=== PATIENT | male | born 1955 | race Caucasian/White ===

== ENCOUNTER 2019-05-23 00:20 | Emergency (ER) | payer OTHER, SELFPAY ==
[2019-05-23 00:25] VITALS: BP 151/101; PULSE 60; RESP 20; TEMP 36.5; O2SAT 99
--- NOTE | 2019-05-23 00:27 | ED_ITS ---
HPI - Abdominal Pain General Chief Complaint: Abdominal Pain Stated Complaint: lft abd pain Time Seen by Provider: 05/23/19 00:25 Source: patient Mode of arrival: Ambulatory Limitations: no limitations History of Present Illness HPI narrative: This is a 63-year-old male who comes emergency department with complaint of left lower quadrant pain. Patient states came on suddenly this evening. He states he went to sleep he felt fine at 9:00 p.m. and then woke up with quite a bit of left lower abdominal pain. It has been increasing over time. He states not radiating elsewhere. He has has no flank pain, no testi cular pain. He has been slightly nauseated. Had 1 episode of dry heaving. He denies any back pain. He states the location has not changed. Patient states he has had a normal bowel movement today. No black or bloody stools. He has not had any frequency, dysuria urgency or hematuria. He has a remote history of prostate cancer and had a urinary sphincter placed. He denies any other current medical issues. He did take an Ambien this evening for sleep. No tobacco, occasional alcohol, rare THC. He denies any other medical issues or taking any other medications regularly. Related Data Previous Rx's Medication Instructions Recorded sildenafil (pulm.hypertension) 20 mg PO QDAYP PRN #50 tab 08/21/16 [Revatio] zolpidem 5 mg tablet 5 mg PO HS #10 tab 11/07/18 tamsulosin [Flomax] 0.4 mg PO DAILY #7 cap 05/23/19 Allergies Allergy/AdvReac Type Severity Reaction Status Date / Time From DITROPAN XL AdvReac Mild DECREASED Uncoded 11/07/18 09:23 URINATION, MENTAL CONFUSION Review of Systems Review of Systems ROS Unobtainable: All systems reviewed & are unremarkable except as noted in HPI and below Patient History Surgical History Status post hernia repair Family History (Updated 08/21/16 @ 00:00 by Conversion Provider) Father Age: 96 Dementia Social History Smoking Status: Never smoker Smoking Status: Never smoker Substance Use Type: marijuana Exam Narrative Exam Narrative: GENERAL: Alert and oriented x three, well-nourished, well-appear ing male in moderate distress. Patient prefers to stand or keeping moving about room. HEENT: Head normocephalic, atraumatic, EOMI, pupils reactive, face symmetric, moist mucous membranes NECK: Supple, full range of motion CARDIOVASCULAR: Regular rate and rhythm without murmurs, rubs or gallops. RESPIRATORY: Breath sounds equal bilaterally, no wheezes rales or rhonchi. ABDOMEN: Soft, positive for left lower quadrant tenderness. Normoactive bowel sounds all 4 quadrants. No guarding or rebound, rigidity, no mass, no hernia noted. No pulsatile mass or bruit noted. : No CVA tenderness EXTREMITIES: Normal range of motion, no clubbing or edema. Neurovascularly intact NEUROLOGICAL: Cranial nerves II through XII grossly intact. Moving all extremities SKIN: Warm, dry, no petechiae, no rashes or lesions. Initial Vital Signs Initial Vital Signs: Vital Signs Temperature 97.7 F 05/23/19 00:25 Pulse Rate 60 05/23/19 00:25 Respiratory Rate 20 05/23/19 00:25 Blood Pressure 151/101 H 05/23/19 00:25 Pulse Oximetry 99 05/23/19 00:25 Course Orders Ordered: ED Orders 05/23/19 00:30 Urinalysis and Microscopic Stat 05/23/19 00:33 CT kidney ureter bladder (KUB) Stat 05/23/19 00:40 Complete Blood Count AUTO DIFF Stat Comprehensive Metabolic Panel Stat Lipase Stat Discontinued Medications Hydrocodone Bitart/Acetaminophen (Vicodin 5/325 Prepack) 1 bottle MISC SEEINSTR ONE Stop: 05/23/19 01:22 Last Admin: 05/23/19 01:26 Dose: 1 bottle Documented by: MMCFARL Ketorolac Tromethamine (Toradol) 30 mg IV NOW ONE Stop: 05/23/19 00:33 Last Admin: 05/23/19 00:41 Dose: 30 mg Documented by: MMCFARL Ondansetron HCl (Zofran) 4 mg IV NOW ONE Stop: 05/23/19 00:33 Last Admin: 05/23/19 00:41 Dose: 4 mg Documented by: MMCFARL Ondansetron HCl (Zofran Odt Prepack) 1 bottle MISC SEEINSTR ONE Stop: 05/23/19 01:22 Last Admin: 05/23/19 01:26 Dose: 1 bottle Documented by: MMCFARL Tamsulosin HCl (Flomax) 0.4 mg PO NOW ONE Stop: 05/23/19 01:22 Last Admin: 05/23/19 01:26 Dose: 0.4 mg Documented by: MMCDAWOOD Vital Signs Vital signs: Vital Signs - 8 hr 05/23/19 00:25 05/23/19 01:30 Temperature 97.7 F Pulse Rate 60 87 Respiratory Rate 20 16 Blood Pressure 151/101 H 141/89 H Pulse Oximetry 99 99 MDM - Abdominal Pain Lab Data Attestation: I reviewed the patient's lab results. Result diagrams: 05/23/19 00:40 05/23/19 00:40 Labs: Lab Results 05/23/19 05/23/19 05/23/19 Range/Units 00:30 00:40 00:40 WBC 6.5 (4.5-11.0) X10^3/uL RBC 4.74 (4.5-5.9) X10^6/uL Hgb 15.1 (13.5-17.5) g/dL Hct 45.2 (41-53) % MCV 95.5 (80-100) fL MCH 31.9 (26-34) PG MCHC 33.4 (30-36) % RDW 13.6 (11.6-14.8) % Plt Count 170 (150-400) X10^3/uL Neut % (Auto) 54.5 (50-75) % Lymph % (Auto) 32.9 (25-40) % [place] % (Auto) 9.9 (3-14) % Eos % (Auto) 1.8 L (2-4) % Baso % (Auto) 0.9 (0-2) % Neut # (Auto) 3600 (1943-7146) /uL Lymph # (Auto) 2100 (2930-1044) /uL [place] # (Auto) 600 (0-900) /uL Eos # (Auto) 100 (0-450) /uL Baso # (Auto) 100 (0-100) /uL Sodium 142 (137-145) mmol/L Potassium 3.8 (3.4-5.1) mmol/L Chloride 104 (98-107) mmol/L Carbon Dioxide 28 (22-32) mmol/L BUN 19 (9-20) mg/dL Creatinine 0.74 (0.66-1.25) mg/dL Estimated GFR > 60.0 (>60) mL/min BUN/Creatinine Ratio 25.7 H (6-22) Glucose 129 H (80-110) mg/dL Calcium 9.0 (8.4-10.2) mg/dL Total Bilirubin 0.5 (0.2-1.3) mg/dL AST 31 (17-59) IU/L ALT 21 (<50) IU/L Alkaline Phosphatase 73 (38-126) U/L Total Protein 7.7 (6.3-8.2) g/dL Albumin 4.4 (3.5-5.0) g/dL Globulin 3.3 (1.7-4.1) g/dL Albumin/Globulin Ratio 1.3 (1.0-2.8) Lipase 131 (23-300) U/L Urine Color Yellow Urine Appearance Clear Urine pH 5.0 (4.5-8.0) Ur Specific [place] >=1.030 H (1.000-1.035) Urine Protein Trace H (Negative) Urine Glucose (UA) Negative (Negative) g/dL Urine Ketones Trace H (NEGATIVE) Urine Occult Blood 3+ H (Negative) Urine Nitrate Negative (Negative) Urine Bilirubin Negative (NEGATIVE) Urine Urobilinogen 0.2 (0.2) E.U./dL Ur Leukocyte Esterase Negative (NEGATIVE) Urine RBC 10-30/hpf H (0-5/HPF) Urine WBC None seen (0-5/HPF) Calcium Oxalate Crystal Few H Urine Bacteria None seen (None) Urine Mucus 1+ H (Negative) Ur Culture Indicated? Cult not indicated Micro UA Comment * Imaging Data CT scan - abdomen/pelvis: Radiologist's Impression: Mild left hydroureteronephrosis with prominent left perinephric stranding. Obstructive calculus is not identified. A 7 mm hyperdensity in the left hemipelvis atypical, figure a herrera for ureteral stone, small cyst in the upper pole the left kidney there is no right hydro or n ephroureterolithiasis. Small cyst in the upper pole the left kidney. Prostate surgically absent. The rest were for the penile pressed ptosis is in the right anterior hemipelvis. Tiny fat containing periumbilical hernia. Small hiatal hernia. Multiple pelvic sidewall clips. MDM Narrative Medical decision making narrative: recheck after medication, patient is much more comfortable and able to lay down and rest on gurney. CBC shows no acute changes. CMP shows normal lytes, renal function, lft's with glucose of 129 and UA shows trace protein, ketones and occult blood is 3+, negative for nitrates or leukocyte esterase. CT KUB shows, mild left hydro with prominent left perinephric stranding. An obstructive calculus is not identified but there is a 7 mm hyperdensity in the left hemipelvis atypical configuration for ureteral stone. Discussed today's findings the patient he has blood and RBCs but no white cells, nitrates or leuks noted. Urine culture was ordered as patient does have stranding would suspect that he may have recently passed stone although he has a hyperdensity that could potentially be an atypical stones, he does have calcium oxalate crystals on UA. No other findings to describe his current abdominal pain. Discussed findings of suspected stone by atypical density on CT that may or may not be stone. Plan for flomax, zofran and norco prn. Patient to call his urologist Dr. Boyle for follow up if not asymptomatic tomorrow. Patient is comfortable with the plan. All questions answered. Discharge Plan Departure Patient Disposition: Home Clinical Impression: Hydroureter on left Abdominal pain Qualifiers: Abdominal location: left lower quadrant Qualified Code(s): R10.32 - Left lower quadrant pain Discharge Date/Time: 05/23/19 01:30 Activity Restrictions/Additional Instructions: Your images today do not show a clear stone but it is possible that you have one present or just passed a stone, there is a density in the left pelvis that would be atypical but possibly a stone. If you continue to have symptoms I recommend calling urology for follow up in the next several days. Urine culture was sent and takes 48-72 hours to results, your urine did not show any clear signs of infection today. Continue zofran 4mg sublingually as needed for zofran. Take flomax once daily until gone. You may continue motrin up to 800mg every 8 hours as needed for pain. Take pain medication as prescribed, this medication can make you sleepy do not drive, perform hazardous activities or make any major decisions while taking it. Return for fevers greater than 100.4F, increasing abdominal or flank pain, passing out, persistent vomiting, black or bloody stools, inability to urinate or other new or concerning symptoms. Prescriptions: New tamsulosin [Flomax] 0.4 mg capsule 0.4 mg PO DAILY Qty: 7 RF: 0 No Action sildenafil (pulm.hypertension) [Revatio] 20 MG tablet 20 mg PO QDAYP PRNQty: 50 RF: 5 zolpidem 5 mg tablet 5 mg PO HS Qty: 10 RF: 5 Referrals: Cristopher Hampton MD [Primary Care Provider] - Melida Boyle MD [Non-Staff] -
--- NOTE | 2019-05-23 00:33 | DI.CT.S_ITS ---
PROCEDURE: CT KIDNEY URETER BLADDER (KUB) INDICATIONS: left lower abdominal pain TECHNIQUE: Noncontrast 5 mm thick sections acquired from the diaphragms to the symphysis. 5 mm thick coronal and sagittal reformats were then performed. For radiation dose reduction, the following was used: automated exposure control, adjustment of mA and/or kV according to patient size. COMPARISON: None. FINDINGS: Image quality: Excellent. Lung bases: Lung bases are clear. Heart size is normal. Coronary artery calcifications are seen. A small hiatal hernia is incidentally noted. Urinary system: There is mild left-sided hydronephrosis and hydroureter. Mild left-sided perinephric stranding is seen. Along the course of the left ureter, no stone is seen. Both kidneys are normal in size. No kidney stones. A 1 cm water density cyst is seen at the superior pole of the left kidney. The bladder is decompressed at the time of this study, which limits its evaluation. No focal bladder abnormality is seen. Other solid organs: Liver is normal in size. Gallbladder wall does not appear thickened. Pancreas is normal in contours. Spleen is normal in size. No adrenal nodules. Peritoneum and bowel: In this patient with this given history, scrutiny is given to the sigmoid colon and the left lower quadrant. Minimal diverticula formation is seen, without findings of active diverticulitis. No significant wall thickening can be seen. No acute left lower quadrant inflammatory changes are seen. Unenhanced bowel loops demonstrate normal wall thickness and caliber. No free fluid or air. A normal appendix can be seen. Nodes and vessels: No retroperitoneal or mesenteric adenopathy by size criteria. Aorta and inferior vena cava are normal in caliber. Atherosclerotic calcification is noted. Abdominal wall: No ventral hernias. Pelvis: No enlarged inguinal or pelvic lymph nodes are seen. There is a fat-containing left inguinal hernia seen. No free pelvic fluid. No inguinal adenopathy. Prostatectomy changes are seen, with lymph node dissection clips. There is a right-sided penile prosthesis, with reservoir. Bones: No suspicious bony lesions. No vertebral body compression fractures. Mild levoconvex scoliotic curvature is noted. Age-appropriate bony degenerative changes are seen. IMPRESSION: Mild left-sided hydronephrosis, hydroureter, and perinephric fat stranding. No obstructing stone can be seen. Differential diagnosis for this appearance includes a recently passed stone or an underlying ureteral lesion, such as a stricture. No nonobstructing kidney stones can be seen involving either side. Minimal sigmoid diverticulosis is seen, without findings of active diverticulitis. Incidental note is made of: Coronary artery calcification Small hiatal hernia 1 cm simple appearing left renal cyst Prostatectomy, with lymph node dissection clips Penile prosthesis Mild fat-containing left inguinal hernia Note: No significant discrepancy from the preliminary report. Dictated by: Ajit Reeves M.D. on 05/23/2019 at 7:29 Approved by: Ajit Reeves M.D. on 05/23/2019 at 7:38
[2019-05-23] MEDS: KETOROLAC 60 MG/2 ML VIAL 30 MG IV (00:41)
[2019-05-23] MEDS: ONDANSETRON 4 MG/2 ML INJ IV (00:41)
[2019-05-23 00:54] LABS: Add Manual Diff / Slide Review NO; Basophils Absolute Auto 100 /uL (0-100); Basophils Percent Auto 0.9 % (0-2); Eosinophils Absolute Auto 100 /uL (0-450); Eosinophils Percent Auto 1.8 % (2-4); Hematocrit 45.2 % (41-53); Hemoglobin 15.1 g/dL (13.5-17.5); Lymphocytes Absolute Auto 2100 /uL (1100-4500); Lymphocytes Percent Auto 32.9 % (25-40); Mean Corpuscular HGB Conc 33.4 % (30-36); Mean Corpuscular Hemoglobin 31.9 PG (26-34); Mean Corpuscular Volume 95.5 fL (80-100); Monocytes Absolute Auto 600 /uL (0-900); Monocytes Percent Auto 9.9 % (3-14); Neutrophils Absolute Auto 3600 /uL (1500-7000); Neutrophils Percent Auto 54.5 % (50-75); Platelet Count 170 X10^3/uL (150-400); Red Blood Cell Count 4.74 X10^6/uL (4.5-5.9); Red Cell Distribution Width 13.6 % (11.6-14.8); White Blood Cell Count 6.5 X10^3/uL (4.5-11.0)
[2019-05-23 00:55] LABS: Bacteria Urine None Seen; WBC Urine None Seen (0-5/HPF)
[2019-05-23 00:57] LABS: Appearance Urine UA CLEAR; Bilirubin Urine UA NEGATIVE (NEGATIVE); Color Urine UA YELLOW; Glucose Urine UA NEGATIVE (Negative); Ketones Urine UA TRACE (NEGATIVE); Leukocyte Esterase Urine UA NEGATIVE (NEGATIVE); Nitrite Urine UA NEGATIVE (Negative); Occult Blood Urine UA 3+ (Negative); Protein Urine UA TRACE (Negative); Specific Gravity Urine UA >=1.030 (1.000-1.035); Urobilinogen Urine UA 0.2 E.U./dL (0.2)
[2019-05-23 00:58] LABS: Alanine Aminotransferase 21 IU/L (<50); Albumin 4.4 g/dL (3.5-5.0); Albumin Globulin Ratio 1.3 (1.0-2.8); Alkaline Phosphatase 73 U/L (38-126); Aspartate Aminotransferase 31 IU/L (17-59); BUN Creatinine Ratio 25.7 (6-22); Bilirubin Total 0.5 mg/dL (0.2-1.3); Blood Urea Nitrogen 19 mg/dL (9-20); Carbon Dioxide 28 mmol/L (22-32); Chloride 104 mmol/L (98-107); Estimated Glomerular Filt Rate > 60.0 mL/min (>60); Globulin 3.3 g/dL (1.7-4.1); Glucose 129 mg/dL (80-110); HEMOLYSIS 37 (0-50); Lipase 131 U/L (23-300); Potassium 3.8 mmol/L (3.4-5.1); Sodium 142 mmol/L (137-145); Total Protein 7.7 g/dL (6.3-8.2)
[2019-05-23 01:08] LABS: Calcium Oxalate Crystals Urine Few; Culture Indicated Urine Cult Not Indicated; Mucus Urine 1+ (Negative); RBC Urine 10-30/HPF (0-5/HPF)
[2019-05-23] MEDS: ONDANSETRON 4 MG ODT PREPACK 1 BOTTLE MISC (01:26)
[2019-05-23] MEDS: TAMSULOSIN 0.4 MG CAPSULE PO (01:26)
[2019-05-23] MEDS: HYDROCODONE/ACET 5/325 PREPACK 1 BOTTLE MISC (01:26)
[2019-05-23 01:30] VITALS: BP 141/89; PULSE 87; RESP 16; O2SAT 99
== END 2019-05-23 01:30 | disposition home or self-care (01) ==
PROVIDERS: Emergency Provider Emergency Medicine; Family Provider Family Medicine; PCP Family Medicine
DX: N13.4 Hydroureter (principal); R10.32 Left lower quadrant pain
CPT/HCPCS: 36415; 74176; 80053; 81001; 83690; 85025; 99284; J1885; J2405

== ENCOUNTER → 2019-11-12 16:00 | Outpatient (CLI) | payer MEDICARE, SELFPAY ==
--- NOTE | 2019-11-12 16:02 | DI.RAD.S_ITS ---
PROCEDURE: XR SHOULDER RT MIN 2V INDICATIONS: Pain TECHNIQUE: 3 views of the shoulder were acquired. COMPARISON: None. FINDINGS: Bones: No fracture. Severe AC joint degeneration. Moderate glenohumeral degenerative joint disease. Soft tissues: No suspicious soft tissue calcifications. IMPRESSION: [id number] right shoulder joint degeneration Dictated by: Izaiah Rueda M.D. on 11/12/2019 at 17:04 Approved by: Izaiah Rueda M.D. on 11/12/2019 at 17:07
--- NOTE | 2019-11-12 16:02 | DI.RAD.S_ITS ---
PROCEDURE: XR SHOULDER LT MIN 2V INDICATIONS: Pain TECHNIQUE: 3 views of the shoulder were acquired. COMPARISON: None. FINDINGS: Bones: No fracture. Prominent subacromial spur. Moderate AC and glenohumeral joint degeneration. Soft tissues: No suspicious soft tissue calcifications. IMPRESSION: Moderate shoulder joint degeneration Large subacromial spur Dictated by: Izaiah Rueda M.D. on 11/12/2019 at 17:07 Approved by: Izaiah Rueda M.D. on 11/12/2019 at 17:08
--- NOTE | 2019-11-12 16:02 | DI.RAD.S_ITS ---
PROCEDURE: XR HIP W PEL IF DONE LT MIN 4V INDICATIONS: Pain TECHNIQUE: AP pelvis with lateral view(s) of the right and left hip(s). COMPARISON: [facility], , HIP 2V RIGHT, 01/15/2012, 12:28. FINDINGS: Bones: No fracture. [id number] bilateral hip joint degeneration which is grossly unchanged on the right. Mild lumbar spondylitic changes. Soft tissues: Numerous surgical clips project in the pelvis. IMPRESSION: Qnhs-[id number]-[id number] bilateral hip joint degeneration, with no definite interval change on the right since 01/15/12. Dictated by: Izaiah Rueda M.D. on 11/12/2019 at 16:38 Approved by: Izaiah Rueda M.D. on 11/12/2019 at 16:40
== END ==
PROVIDERS: Family Provider Family Medicine; PCP Family Medicine; Referring Provider Family Medicine; Visit Provider Family Medicine
DX: M25.50 Pain in unspecified joint (principal); M16.0 Bilateral primary osteoarthritis of hip; M19.011 Primary osteoarthritis, right shoulder; M19.012 Primary osteoarthritis, left shoulder; M75.92 Shoulder lesion, unspecified, left shoulder
CPT/HCPCS: 73030; 73522

== ENCOUNTER → 2020-01-12 11:30 | Outpatient (CLI) | payer MEDICARE, SELFPAY ==
--- NOTE | 2020-01-12 | DI.MRI.S_ITS ---
PROCEDURE: MR SHOULDER RT WO CON INDICATIONS: RIGHT SHOULDER PAIN TECHNIQUE: Noncontrast oblique coronal T2 fast spin echo with fat saturation, oblique sagittal T1 spin echo and T2 fast spin echo with fat saturation, axial T1 spin echo and T2 fast spin echo with fat saturation through the shoulder. COMPARISON: None. FINDINGS: Image quality: Excellent. Rotator cuff: Tendinosis and moderate grade articular and bursal surface partial thickness tear involving distal supraspinatus and infraspinatus at their insertions on humeral head is seen extending to musculotendinous junction. Distal subscapularis tendinosis and low-grade intrasubstance partial-thickness tear is also likely present. No full-thickness rotator cuff tendon rupture. Sagittal images demonstrate mild supraspinatus muscle atrophy. Bones and bursae: No bone marrow contusions or fractures. Moderate acromioclavicular joint and glenohumeral joint osteoarthritic changes are seen with downward osteophyte formation in acromioclavicular joint depressing the musculotendinous junction of supraspinatus. Mild to moderate amount of subacromial subdeltoid bursal fluid is seen. Capsule and soft tissues: In the absence of intra-articular contrast, there is suggestion of superior anterior labral tear at 12 to 2 o'clock position. The glenohumeral ligaments appear intact. The long head of the biceps tendon demonstrates normal location and morphology. The rotator interval appears normal, without fibrosis. The coracohumeral ligament is normal in thickness. IMPRESSION: 1. Tendinosis and mild to moderate articular and bursal surface partial thickness tear involving distal supraspinatus and infraspinatus extending to musculotendinous junction. Distal subscapularis tendinosis and low-grade intrasubstance partial-thickness tear. Mild supraspinatus muscle atrophy. 2. Finding is suggestive of focal superior anterior labral tear at 12 to 2 o'clock position. 3. Moderate acromioclavicular joint and glenohumeral joint osteoarthritis. Dictated by: Felipe Mar M.D. on 01/12/2020 at 13:08 Approved by: Felipe Mar M.D. on 01/12/2020 at 13:33
== END ==
PROVIDERS: Family Provider Family Medicine; PCP Family Medicine; Referring Provider Orthopaedic Surgery; Visit Provider Orthopaedic Surgery
DX: M25.511 Pain in right shoulder (principal); M75.111 Incomplete rotator cuff tear or rupture of right shoulder, not specified as traumatic; M19.011 Primary osteoarthritis, right shoulder
CPT/HCPCS: 73221

== ENCOUNTER → 2020-09-14 07:55 | Outpatient (CLI) | payer MEDICARE, SELFPAY ==
--- NOTE | 2020-09-14 | DI.US.S_ITS ---
PROCEDURE: US RENAL COMPLETE INDICATIONS: ASSESS URINARY IMPLANT TECHNIQUE: Real-time scanning was performed of the kidneys and bladder, with image documentation. COMPARISON: [facility], CT, CT KIDNEY URETER BLADDER (KUB), 05/23/2019, 0:30. FINDINGS: Kidneys: Kidneys are normal in size. Right kidney measures 11.0 cm long; left kidney measures 12.3 cm long. Right renal cortical thickness is 1.6 cm; left renal cortical thickness is 1.6 cm. Renal cortical echotexture is normal. No hydronephrosis or nephrolithiasis. No suspicious solid mass lesions. Miscellaneous: No free pelvic fluid. Remote prostatectomy. Urinary sphincter implant in the right lower quadrant is intact, with 7.2 mL of fluid present within the chamber. IMPRESSION: 1. Normal size kidneys with no evidence of hydronephrosis. 2. Intact urinary sphincter implant. Dictated by: Castro Sánchez M.D. on 09/14/2020 at 11:55 Approved by: Castro Sánchez M.D. on 09/14/2020 at 12:07
== END ==
PROVIDERS: Family Provider Family Medicine; PCP Family Medicine; Referring Provider Urology; Visit Provider Urology
DX: N39.3 Stress incontinence (female) (male) (principal); T83.198A Other mechanical complication of other urinary devices and implants, initial encounter
CPT/HCPCS: 76770

== ENCOUNTER → 2020-12-21 09:32 | Outpatient (CLI) | payer MEDICARE, SELFPAY ==
[2020-12-21 10:54] LABS: Add Manual Diff / Slide Review NO; Basophils Absolute Auto 0 /uL (0-100); Basophils Percent Auto 0.6 % (0-2); Eosinophils Absolute Auto 100 /uL (0-450); Eosinophils Percent Auto 2.2 % (2-4); Hematocrit 44.9 % (41-53); Hemoglobin 14.8 g/dL (13.5-17.5); Lymphocytes Absolute Auto 1700 /uL (1100-4500); Lymphocytes Percent Auto 32.4 % (25-40); Mean Corpuscular Hemoglobin 31.1 PG (26-34); Mean Corpuscular Volume 94.4 fL (80-100); Monocytes Absolute Auto 500 /uL (0-900); Monocytes Percent Auto 10.3 % (3-14); Neutrophils Absolute Auto 2800 /uL (1500-7000); Neutrophils Percent Auto 54.5 % (50-75); Platelet Count 171 X10^3/uL (150-400); Red Blood Cell Count 4.75 X10^6/uL (4.5-5.9); Red Cell Distribution Width 13.7 % (11.6-14.8); White Blood Cell Count 5.2 X10^3/uL (4.5-11.0)
[2020-12-21 11:01] LABS: Appearance Urine UA CLEAR; Bilirubin Urine UA NEGATIVE (NEGATIVE); Color Urine UA YELLOW; Glucose Urine UA NEGATIVE (Negative); Ketones Urine UA NEGATIVE (NEGATIVE); Leukocyte Esterase Urine UA NEGATIVE (NEGATIVE); Nitrite Urine UA NEGATIVE (Negative); Occult Blood Urine UA NEGATIVE (Negative); Protein Urine UA NEGATIVE (Negative); Specific Gravity Urine UA 1.015 (1.000-1.035); Urobilinogen Urine UA 0.2 E.U./dL (0.2); pH Urine UA 6.5 (4.5-8.0)
[2020-12-21 11:15] LABS: Bacteria Urine None Seen; Culture Indicated Urine Cult Not Indicated; RBC Urine None Seen (0-5/HPF); Urine Comments Microscopic Normal; WBC Urine None Seen (0-5/HPF)
[2020-12-21 11:18] LABS: Alanine Aminotransferase 17 IU/L (<50); Albumin 4.3 g/dL (3.5-5.0); Albumin Globulin Ratio 1.7 (1.0-2.8); Alkaline Phosphatase 66 U/L (38-126); Aspartate Aminotransferase 27 IU/L (17-59); BUN Creatinine Ratio 19.7 (6-22); Bilirubin Total 0.9 mg/dL (0.2-1.3); Blood Urea Nitrogen 15 mg/dL (9-20); Calcium 9.6 mg/dL (8.4-10.2); Carbon Dioxide 30 mmol/L (22-32); Chloride 104 mmol/L (98-107); Cholesterol 238 mg/dL (140-199); Estimated Glomerular Filt Rate > 60.0 mL/min (>60); Globulin 2.5 g/dL (1.7-4.1); Glucose 98 mg/dL (80-110); HDL Cholesterol 56 mg/dL (40-60); HEMOLYSIS < 15 (0-50); LDL Cholesterol Calculated 159 mg/dL (<100); Potassium 4.6 mmol/L (3.4-5.1); Sodium 140 mmol/L (137-145); Total Protein 6.8 g/dL (6.3-8.2); Triglycerides 116 mg/dL (35-150)
[2020-12-21 11:55] LABS: Prostate Specific Antigen Scrn < 0.064 ng/mL (0.1-4.0)
[2020-12-22 20:22] LABS: Hep C Virus Ab w/Reflex Quant REACTIVE s/c (NEGATIVE)
== END ==
PROVIDERS: Family Provider Family Medicine; PCP Family Medicine; Referring Provider Family Medicine; Visit Provider Family Medicine
DX: C61 Malignant neoplasm of prostate (principal); E78.2 Mixed hyperlipidemia; Z12.5 Encounter for screening for malignant neoplasm of prostate; Z86.19 Personal history of other infectious and parasitic diseases; R30.0 Dysuria; Z90.79 Acquired absence of other genital organ(s)
CPT/HCPCS: 36415; 80053; 80061; 81001; 85025; 86803; 87522; G0103

== ENCOUNTER → 2022-12-18 06:52 | Outpatient (CLI) | payer MEDICARE, SELFPAY ==
[2022-12-18 08:57] LABS: Add Manual Diff / Slide Review NO; Basophils Absolute Auto 0 /uL (0-100); Basophils Percent Auto 0.9 % (0-2); Eosinophils Absolute Auto 100 /uL (0-450); Eosinophils Percent Auto 2.6 % (2-4); Hematocrit 42.4 % (41-53); Hemoglobin 14.3 g/dL (13.5-17.5); Lymphocytes Absolute Auto 1800 /uL (1100-4500); Lymphocytes Percent Auto 33.6 % (25-40); Mean Corpuscular HGB Conc 33.8 % (30-36); Mean Corpuscular Hemoglobin 32.1 PG (26-34); Mean Corpuscular Volume 95.2 fL (80-100); Monocytes Absolute Auto 600 /uL (0-900); Monocytes Percent Auto 10.9 % (3-14); Neutrophils Absolute Auto 2800 /uL (1500-7000); Platelet Count 164 X10^3/uL (150-400); Red Blood Cell Count 4.46 X10^6/uL (4.5-5.9); White Blood Cell Count 5.4 X10^3/uL (4.5-11.0)
[2022-12-18 09:05] LABS: Alanine Aminotransferase 20 IU/L (<50); Albumin 3.9 g/dL (3.5-5.0); Albumin Globulin Ratio 1.4 (1.0-2.8); Alkaline Phosphatase 63 U/L (38-126); Aspartate Aminotransferase 28 IU/L (17-59); BUN Creatinine Ratio 25.6 (6-22); Bilirubin Total 0.8 mg/dL (0.2-1.3); Blood Urea Nitrogen 20 mg/dL (9-20); Calcium 9.9 mg/dL (8.4-10.2); Carbon Dioxide 30 mmol/L (22-32); Chloride 104 mmol/L (98-107); Cholesterol 223 mg/dL (140-199); Estimated Glomerular Filt Rate > 60 mL/min (>60); Globulin 2.7 g/dL (1.7-4.1); Glucose 91 mg/dL (80-110); HDL Cholesterol 50 mg/dL (40-60); HEMOLYSIS < 15 (0-50); LDL Cholesterol Calculated 149 mg/dL (<100); Potassium 4.7 mmol/L (3.4-5.1); Sodium 140 mmol/L (137-145); Total Protein 6.6 g/dL (6.3-8.2); Triglycerides 119 mg/dL (35-150)
[2022-12-18 10:10] LABS: Hep C Virus Ab w/Reflex Quant REACTIVE s/c (NEGATIVE)
[2022-12-19 07:18] LABS: PSA Ultrasensitive <0.006 ng/mL (0.000-4.000)
== END ==
PROVIDERS: Family Provider Family Medicine; PCP Family Medicine; Referring Provider Family Medicine; Visit Provider Family Medicine
DX: E78.2 Mixed hyperlipidemia (principal); Z86.19 Personal history of other infectious and parasitic diseases; Z90.79 Acquired absence of other genital organ(s); I10 Essential (primary) hypertension
CPT/HCPCS: 36415; 80053; 80061; 84153; 85025; 86803; 87522

== ENCOUNTER → 2024-03-19 08:05 | Outpatient (CLI) | payer MEDICARE, SELFPAY ==
[2024-03-19 08:45] LABS: Add Manual Diff / Slide Review NO; Basophils Absolute Auto 0 /uL (0-100); Basophils Percent Auto 0.8 % (0-2); Eosinophils Absolute Auto 100 /uL (0-450); Eosinophils Percent Auto 1.9 % (2-4); Hematocrit 42.7 % (41-53); Hemoglobin 14.5 g/dL (13.5-17.5); Lymphocytes Absolute Auto 1400 /uL (1100-4500); Lymphocytes Percent Auto 27.4 % (25-40); Mean Corpuscular HGB Conc 33.9 % (30-36); Mean Corpuscular Hemoglobin 32.2 PG (26-34); Mean Corpuscular Volume 94.8 fL (80-100); Monocytes Absolute Auto 500 /uL (0-900); Monocytes Percent Auto 10.8 % (3-14); Neutrophils Absolute Auto 3000 /uL (1500-7000); Neutrophils Percent Auto 59.1 % (50-75); Platelet Count 156 X10^3/uL (150-400); Red Cell Distribution Width 13.6 % (11.6-14.8)
[2024-03-19 09:04] LABS: Alanine Aminotransferase 24 IU/L (<50); Albumin 4.2 g/dL (3.5-5.0); Albumin Globulin Ratio 1.7 (1.0-2.8); Alkaline Phosphatase 58 U/L (38-126); Aspartate Aminotransferase 30 IU/L (17-59); Bilirubin Total 0.8 mg/dL (0.2-1.3); Blood Urea Nitrogen 17 mg/dL (9-20); Calcium 9.3 mg/dL (8.4-10.2); Carbon Dioxide 27 mmol/L (22-32); Chloride 106 mmol/L (98-107); Estimated Glomerular Filt Rate > 60 mL/min (>60); Globulin 2.5 g/dL (1.7-4.1); Glucose 110 mg/dL (80-110); HEMOLYSIS < 15 (0-50); Potassium 4.5 mmol/L (3.4-5.1); Sodium 138 mmol/L (137-145); Total Protein 6.7 g/dL (6.3-8.2)
== END ==
PROVIDERS: Family Provider Family Medicine; PCP Family Medicine; Referring Provider Family Medicine; Visit Provider Family Medicine
DX: Z00.00 Encounter for general adult medical examination without abnormal findings (principal); E78.2 Mixed hyperlipidemia; G47.9 Sleep disorder, unspecified
CPT/HCPCS: 36415; 80053; 85025

== ENCOUNTER 2024-04-22 09:51 | Day surgery (SDC) | payer MEDICARE, SELFPAY ==
--- NOTE | 2024-04-22 | PATH_ITS ---
[facility] Accession Number: [id number] No. of containers..01 Tissue . 01 Material submitted: . colon - POLYP @ 30 . 01 Diagnosis: COLON POLYP AT 30 CM, BIOPSY: Tubular adenoma. MRV 04/24/2024 1354 Local . 01 Electronically signed: . Yoli Klein MD, Pathologist NPI- [id number] . 01 Gross description: . POLYP @ 30: Received in formalin is 1 fragment(s) of tovar, soft tissue measuring 0.6 x 0.4 x 0.4 cm submitted entirely in 1 cassette(s) /BERNICE 04/23/20242004 Local . 01 Pathologist provided ICD-10: D12.6 . 01 CPT . 006105 Specimen Comment: A courtesy copy of this report has been sent to [phone] Performed at: [address] [facility] [id number] MD Reynaldo Hamilton MD Phone: [phone]
[2024-04-22 11:08] VITALS: BP 133/79; PULSE 67; RESP 14; O2SAT 96
[2024-04-22] MEDS: LACTATED RINGERS 1,000 ML 42 ML IV (11:14)
--- NOTE | 2024-04-22 11:33 | PM.HP.IH.1 ---
History of Present Illness History of Present Illness Date Patient Seen: 04/22/24 Chief complaint: SDC [facility] Medical History (Updated 01/26/21 @ 09:55 by Zain Winn MD) Sleep disorder Surgical History Status post hernia repair Family History (Updated 08/21/16 @ 00:00 by Conversion Provider) Father Age: 101 Dementia Social History Smoking Status: Former smoker Meds Home Medications and Allergies Home Medications Medication Instructions Recorded Confirmed Type ramelteon 8 mg tablet 8 mg PO BEDTIME PRN sleep #60 tabs 03/12/24 03/12/24 Rx sildenafil (pulm.hypertension) 20 20 mg PO QDAYP PRN sexual activity 03/12/24 03/12/24 Rx mg tablet (Revatio) #50 tabs zolpidem 5 mg tablet 5 mg PO HS #30 tabs 03/12/24 03/12/24 Rx sodium,potassium,mag sulfates 17.5 See Rx Instructions PO .COMPLEX 04/07/24 Rx gram-3.13 gram-1.6 gram oral soln #354 mL (Suprep Bowel Prep Kit) Allergies Allergy/AdvReac Type Severity Reaction Status Date / Time oxybutynin [From Ditropan] AdvReac Mild Decreased Verified 04/21/24 12:03 urination, mental confusion Exam Vital Signs (past 8 hours): - 04/22/24 11:08 Pulse Rate 67 Respiratory Rate 14 Blood Pressure 133/79 Pulse Oximetry 96 Oxygen Delivery Method Room Air Oxygen Delivery Method Room Air Narrative Exam Narrative: Oropharynx free of lesions Chest clear to auscultation percussion Cardiac exam reveals no S3 or murmur Assessment & Plan Assessment & Plan narrative: History of colon polyps need follow-up colonoscopy. Risks, benefits, alternatives have been explained. Time-Based Coding :: [TOTAL MINUTES] spent with patient and on the chart (including review of chart, obtaining history, exam, reviewing outside data, placing orders, documenting exam and treatment plan, and counseling patient) on [DATE]. [employer] Document charge(s): No
--- NOTE | 2024-04-22 11:35 | PM.OP.COLON ---
Procedure & Clinicians Study performed: Colonoscopy Same procedure as scheduled: Yes Indications: History of colon polyps Surgeon: Halima Acosta Procedure Notes Procedure in detail: After informed consent was obtained the patient was placed in left lateral decubitus position. The video colonoscope was introduced the rectum slowly advanced cecum. Preparation was good. On slow withdrawal mucosa was carefully examined. The scope was removed. The patient tolerated procedure well. Blood loss none Complications none Sedation mac Findings 1. 6 mm polyp at 30 cm cold snared and removed completely 2. Otherwise negative colonoscopy to cecum We will be in touch regarding appropriate interval for follow-up
[2024-04-22 12:54] VITALS: BP 110/71; PULSE 65; RESP 11; TEMP 36.9; O2SAT 96
[2024-04-22 13:01] VITALS: BP 105/74; PULSE 62; RESP 12; O2SAT 94
[2024-04-22 13:04] VITALS: BP 103/73; PULSE 83; RESP 14; O2SAT 98
[2024-04-22 13:13] VITALS: BP 106/71; PULSE 63; RESP 14; O2SAT 98
== END 2024-04-22 13:40 | disposition home or self-care (01) ==
PROVIDERS: Family Provider Family Medicine; PCP Family Medicine; Referring Provider Internal Medicine Gastroenterology; Visit Provider Internal Medicine Gastroenterology
PROC: 0DJD8ZZ Inspection of Lower Intestinal Tract, Via Natural or Artificial Opening Endoscopic (ICD-10-PCS; CPT 45378; principal; 2024-04-22 11:00)
DX: Z12.11 Encounter for screening for malignant neoplasm of colon (principal); Z86.0100 Personal history of colon polyps, unspecified; Z87.891 Personal history of nicotine dependence; D12.6 Benign neoplasm of colon, unspecified
CPT/HCPCS: 45385; J2704